=== PATIENT | male | born 1960 | race Caucasian/White ===

== ENCOUNTER 2020-09-24 00:42 | Emergency (ER) | payer BC, SELFPAY ==
[2020-09-24 00:56] VITALS: BP 116/83; PULSE 88; RESP 16; TEMP 36.7; O2SAT 96; BMI 25.8
[2020-09-24] MEDS: methylPREDNISolone Sod Succ/PF 125 MG/2 ML VIAL 60 MG IVPUSH (01:13)
[2020-09-24] MEDS: Famotidine/PF 20 MG/2 ML VIAL IVPUSH (01:13)
[2020-09-24 02:00] VITALS: BP 135/75; PULSE 84; RESP 16; O2SAT 97
--- NOTE | 2020-09-24 02:07 | ED_ITS ---
HPI - Allergic Reaction General Chief complaint: Allergic Reaction Stated complaint: ALLERGIC REACTION Time Seen by Provider: 09/24/20 01:00 Source: patient Mode of arrival: ambulatory History of Present Illness HPI narrative: This is a 60-year-old male states that he was out eating [place] food (containing chicken) when he notice that his palm of his hands was itching and took Benadryl without any improvement and then later noticed that his lower legs hives. Patient does note that he had the COVID-19 vaccine today. Patient became concerned because he noticed hives on the lower legs and administered an EpiPen at approximately 10:[address] and [address] himself to the emergency department. He denies any shortness of breath, difficulty swallowing, tongue or lip swelling. In addition, he denies any nausea, vomiting, diarrhea. Related Data Previous Rx's Medication Instructions Recorded epinephrine [EpiPen] 0.3 mg IM Q10M PRN #1 ea 09/24/20 Allergies Allergy/AdvReac Type Severity Reaction Status Date / Time ciprofloxacin [From Cipro] Allergy Unknown Verified 09/24/20 01:04 shellfish derived Allergy Anaphylaxis Verified 09/24/20 01:04 Review of Systems Review of Systems: Pertinent positives as mentioned in HPI and 10 point review of systems is otherwise negative PMFSH Past Medical History Source: nursing notes reviewed Medical History Diabetes High cholesterol Kidney stones Surgical History H/O hernia repair History of appendectomy Social History Social History Advance Directives: No Physical Exam Vital Signs: Vital Signs: Last Vital Signs Temp 98.0 F 09/24/20 00:56 Pulse 84 09/24/20 02:00 Resp 16 09/24/20 02:00 BP 135/75 09/24/20 02:00 Pulse Ox 97 09/24/20 02:00 Body Mass Index 25.8 VITAL SIGNS: Reviewed. GENERAL: Well developed, well nourished, in no acute distress. NOSE: Nares patent bilateral OROPHARYNX: no oral lesions noted, posterior pharynx clear and no lip/tongue swelling noted NECK: Supple, no adenopathy LUNGS: Normal breath sounds. No adventitious sounds or accessory muscle use. SpO2<97> CARDIOVASCULAR: Regular rate and rhythm without noted murmurs, no JVD or lower extremity edema. ABDOMEN: Soft, non-tender, non-distended with bowel sounds. No rigidity. No guarding. No palpable masses or hernias noted SKIN: Inspection of the skin reveals no rashes NEUROLOGIC: Alert and oriented x 4. Course Course Course Narrative: This is a 60-year-old male with allergic reaction in the form of hives and received additional Solu-Medrol as well as Pepcid here in the emergency department. He has had no worsening of symptoms and as a matter fact has completely cleared. Is unclear at this time whether not it was a COVID-19 vaccine or some other ingredient in the [place] food. All results and findings were discussed with him bedside and he was discharged to home in stable condition with prescription for a replacement EpiPen. Discharge Plan Discharge Clinical Impression: Allergic reaction Qualifiers: Encounter type: initial encounter Qualified Code(s): T78.40XA - Allergy, unspecified, initial encounter Patient Disposition: Home, Self-Care Instructions: Urticaria (ED) Additional Instructions: Please do not hesitate to return to this emergency department should she develop any additional rash lip/tongue/facial swelling or difficulty breathing. Prescriptions: New epinephrine [EpiPen] 0.3 mg/0.3 mL auto-injector 0.3 mg IM Q10M PRN (Reason: anaphylaxis) Qty: 1 RF: 0
== END 2020-09-24 03:50 | disposition home or self-care (01) ==
PROVIDERS: Emergency Provider Student in an Organized Health Care Education/Training Program
DX: L23.9 Allergic contact dermatitis, unspecified cause (principal); Z79.899 Other long term (current) drug therapy
CPT/HCPCS: 96374; 96375; 99284; J2930